=== PATIENT | female | born 1990 | race Two or more races ===

== ENCOUNTER 2025-02-07 06:01 | Emergency (ER) | payer MEDICAID, OTHER ==
[~2025-02-07] VITALS: Ht 165.1 cm; Wt 106.0 kg
--- NOTE | 2025-02-07 07:10 | ED.PDOC ---
Musculoskeletal HPI Comments 34 y.o female presents to the ED for a chief complaint of left shoulder pain s/p slip and fall 2 days ago. Patient was mopping the floor when she slipped, landed forward and then onto her left shoulder, heard a pop and her shoulder popped out of place. She reports when getting herself back up, she felt like the shoulder popped back in, but since has had pain with movement and is unable to fully extend her arm out. During work yesterday, felt like the pain persistent, promoting her to come in today. She took a pain medication her co worker gave her but denied any relief. She denies any head injuries or LOC during fall incident. No numbness/tingling sensation to shoulder area, fever, or chills. Chief Complaint: Upper Extremity Time Seen by MD: 07:08 Reviewed Notes: Nurses Notes, Medications, Allergies Information Source: Patient Mode of Arrival: Ambulatory Location: Left Extremity Location: Shoulder Timing: Days (2) Severity: Moderate Able to Move Extremity: Yes Bear Weight: Limited Pain: Moderate Mechanism: None Circumstances: Fall Onset of Symptoms: After Trauma Symptoms: Pain DVT Risk Factors: NONE Associated signs and symptoms: Shoulder pain Past Medical History PAST MEDICAL HISTORY: Denies Surgical History: Denies all surgeries [employer] History: No Pertinent [employer] History Family History Family History: Reviewed,noncontributory to illness Social History Smoker: Non-Smoker Alcohol: Denies ETOH Use Drugs: Denies Drug Use Lives In: Home Constitutional: denies: chills, diaphoresis, fatigue, fever, malaise, sweats, weakness, others EENTM: denies: blurred vision, double vision, ear bleeding, ear discharge, ear drainage, ear pain, ear ringing, eye pain, eye redness, hearing loss, mouth pain, mouth swelling, nasal discharge, nose bleeding, nose congestion, nose pain, photophobia, tearing, throat pain, throat swelling, voice changes, others Respiratory: denies: cough, hemoptysis, orthopnea, SOB at rest, shortness of breath, SOB with excertion, stridor, wheezing, others Cardiovascular: denies: chest pain, dizzy spells, diaphoresis, Dyspnea on exertion, edema, irregular heart beat, left arm pain, lightheadedness, palpitations, PND, syncope, others Gastrointestinal: denies: abdomen distended, abdominal pain, blood streaked bowels, constipated, diarrhea, dysphagia, difficulty swallowing, hematemesis, melena, nausea, poor appetite, poor fluid intake, rectal bleeding, rectal pain, vomiting, others Genitourinary: denies: abnormal vagina bleeding, burning, dyspareunia, dysuria, flank pain, frequency, hematuria, incontinence, pain, , vagina discharge, urgency, others Neurological: denies: dizziness, fainting, headache, left sided numbness, left sided weakness, numbness, paresthesia, pre-existing deficit, right sided numbness, right sided weakness, seizure, speech problems, tingling, tremors, weakness, others Musculoskeletal: reports: others (left shoulder pain ); denies: back pain, gout, joint pain, joint swelling, muscle pain, muscle stiffness, neck pain Integumetry: denies: bruises, change in color, change in hair/nails, dryness, laceration, lesions, lumps, rash, wounds, others Allergic/Immunocompromised: denies: Difficulty Healing, Frequent Infections, Hives, Itching, others Hematologic/Lymphatic: denies: anemia, blood clots, easy bleeding, easy bruising, swollen glands, others Endocrine: denies: excessive hunger, excessive sweating, excessive thirst, excessive urination, flushing, intolerance to cold, intolerance to heat, unexplained weight gain, unexplained weight loss, others Psychiatric: denies: anxiety, bipolar disorder, depression, hopeless, panic disorder, schizophrenia, sleepless, suicidal, others All Other Systems: Reviewed and Negative Physical Exam General Appearance: No Apparent Distress, Normal HEENT: Normal ENT Inspection, Pharynx Normal, TMs Normal Neck: Full Range of Motion, Non-Tender, Normal, Normal Inspection Respiratory: Chest Non-Tender, Lungs Clear, No Accessory Muscle Use, No Respiratory Distress, Normal Breath Sounds Cardiovascular: No Edema, No JVD, No Murmur, No Gallop, Normal Peripheral Pulses, Regular Rate/Rhythm Breast Exam: Deferred Gastrointestinal: No Organomegaly, Non Tender, No Pulsatile Mass, Normal Bowel Sounds, Soft Genitalia: Deferred Pelvic: Deferred Rectal: Deferred Extremities: Normal inspection, Normal range of motion, Non-tender, Other (No deformity to left shoulder appears to be in socket joint. Median ulnar radial nerve intact to left upper extremity. Plus two left radial pulse. Nontender clavicle) Musculoskeletal : Apperance: Normal Neurologic: Alert, die lay out worker II-XII nml as Tested, No Motor Deficits, Normal Affect, Normal Mood, No Sensory Deficits Cerebellar Function: Normal Reflexes: Normal Skin: Dry, Normal Color, Warm Lymphatic: No Adenopathy Was a procedure done? Was a procedure done?: No Differential Diagnosis EXT Differential Diagnosis: Fracture, Sprain, Dislocation, Strain X-Ray, Labs, Meds, VS Vital Signs Date Time Temp Pulse Resp B/P (MAP) Pulse Ox O2 Delivery O2 Flow Rate FiO2 02/07/25 06:03 97.6 93 16 113/36 97 97.6 Current Medications Medications (Trade) Dose Ordered Sig/Puma Route Start Time Stop Time Status Last Admin Ibuprofen (Motrin Tablet) 800 mg ONCE ONCE PO 02/07/25 07:15 02/07/25 07:16 DC 02/07/25 07:47 [place] [id number] Ph: [phone] DIAGNOSTIC IMAGING Diagnostic Imaging Report : [id number] Signed PATIENT: VINCE CARIAS ACCT: [id number] UNIT: [id number] : 1990 LOC: ER ROOM / BED: / AGE / SEX: 34 / F ADM STATUS: REG ER SERVICE 0 ORDERING PHYSICIAN: AMENA FLORES MD PROCEDURE(s): LSHD2 - L SHOULDER 2+ VIEW XRAY REASON: Shoulder post reduction x-ray ORDER NUMBER(s): [id number], ACCESSION NUMBER(s): [id number] CLINICAL INFORMATION: Status post possible dislocation. Self reduced by patient 2 days ago. TECHNIQUE: 3 views of the left shoulder were obtained. COMPARISON: None FINDINGS: No acute fracture or dislocation. No significant arthropathy. Overlying soft tissues are grossly unremarkable. IMPRESSION: No evidence of acute bony abnormality. The glenohumeral joint is normally aligned. ATED BY: EH CHARLES DO DICTATED DATE/TIME: 02/07/25742 SIGNED BY: EH CHARLES DO SIGNED DATE/TIME: 02/07/25742 CC: 34-year-old female presents here status post likely shoulder dislocation that occurred at home 2 days ago. Patient states she fell onto the left shoulder and she felt the left shoulder pop out. She was able to pop it back in immediately. She states since then however she has been having pain to the area. Denies any numbness tingling to her left extremity. On my examination she is neurovascularly intact. Shoulder seems to be in its socket joint. I have ordered x-rays of the left shoulder. At this time x-ray demonstrates good alignment to the shoulder and shoulder seems to be in socket joint. Patient has been placed in shoulder immobilizer. Advised her to see Orthopedic surgery. Advised her she needs to keep the shoulder immobilizer on at all times unless showering. Patient agreeable and understands the plan. Time of 1ST Reevaluation: 07:30 Reevaluation 1ST: Unchanged Patient Education/Counseling: Diagnosis, Treatment, Prognosis Family Education/Counseling: No Family Present Departure 1 Departure Time of Disposition: 07:53 Impression: Primary Impression: Shoulder dislocation Qualified Codes: S43.005A - Unspecified dislocation of left shoulder joint, initial encounter Disposition: 01 HOME / SELF CARE / HOMELESS Condition: Fair Additional Instructions: Please wear your shoulder immobilizer at all times unless showering. Please follow up with Orthopedic surgery. Discharged With: Self Critical Care Note Critical Care Time?: No Stability Stability form required: No Heart Score Heart Score: Heart Score Response (Comments) Value History N/A 0 EKG N/A 0 Age N/A 0 Risk Factors N/A 0 Troponin N/A 0 Total 0 I personally scribed for AMENA FLORES MD ([email or web address]) on 02/07/25 at 07:10. Electronically submitted by Carri Pollard ([facility]). I personally scribed for AMENA FLORES MD ([email or web address]) on 02/07/25 at 07:12. Electronically submitted by Carri Pollard ([facility]). AMENA FLORES MD Feb 07, 2025 07:10
--- NOTE | 2025-02-07 07:45 | DVH ---
CLINICAL INFORMATION: Status post possible dislocation. Self reduced by patient 2 days ago. TECHNIQUE: 3 views of the left shoulder were obtained. COMPARISON: None FINDINGS: No acute fracture or dislocation. No significant arthropathy. Overlying soft tissues are grossly unremarkable. IMPRESSION: No evidence of acute bony abnormality. The glenohumeral joint is normally aligned.
[2025-02-07] MEDS: IBUPROFEN 800 MG TAB PO ONE (07:47)
[2025-02-07 08:02] VITALS: BP 109/60; PULSE 71; RESP 18; TEMP 98.1; O2SAT 98
== END 2025-02-07 08:04 | disposition home or self-care (01) ==
LOC: ER 06:01
DX: S43.005A Unspecified dislocation of left shoulder joint, initial encounter (principal); W01.0XXA Fall on same level from slipping, tripping and stumbling without subsequent striking against object, initial encounter; Y93.89 Activity, other specified; Y92.89 Other specified places as the place of occurrence of the external cause; Y99.8 Other external cause status
CPT/HCPCS: 29105; 73030